=== PATIENT | male | born 1950 | race Caucasian/White ===

== ENCOUNTER 2019-03-28 11:44 | Outpatient (CLI) | payer MEDICARE, OTHER ==
--- NOTE | 2019-03-28 12:36 | RAD ---
EXAM: 3 views of the lumbosacral spine HISTORY: Low back pain for years COMPARISON: None FINDINGS: 3 views of the lumbosacral spine shows normal height of the vertebral bodies without fractu re. There is grade 1-2 anterolisthesis of L5 on S1. Intervertebral discs are narrowed throughout the lumbar spine with moderate osteophyte formation. Alignment is unchanged with flexion and extensio n. The sacroiliac joints are unremarkable. IMPRESSION: Degenerative changes as above with anterolisthesis of L5 on S1.
--- NOTE | 2019-03-28 13:39 | MRI ---
EXAM: MRI lumbar spine without contrast HISTORY: Low back pain for years COMPARISON: None TECHNIQUE: Multiple planar multisequence MR images were obtained of the lumbar spine without contrast . FINDINGS: There is grade 1-2 anterolisthesis of L5 on S1. Endplate degenerative changes are seen throughout the lumbar spine. Generalized disc desiccation is seen. The vertebral bodies demonstrate normal height without fracture. Numerous cysts are seen in both kidneys. The paraspinal soft tissues are unremarkable. The conus medullaris terminates normally at T12/L1. T12/L1: A small disc osteophyte complex is seen. No posterior facet arthrosis. No central canal hilario nosis. No neural foraminal stenosis L1/2: A small disc osteophyte complex is seen. No posterior facet arthrosis. No central canal steno sis. Mild bilateral neural foraminal stenosis L2/3: A moderate disc osteophyte complex is seen. Mild bilateral posterior facet arthrosis. Mild ce ntral canal stenosis. Mild bilateral neural foraminal stenosis L3/4: A large disc osteophyte complex is seen. Mild bilateral posterior facet arthrosis. Moderate c entral canal stenosis. Moderate bilateral neural foraminal stenosis L4/5: A large disc osteophyte complex is seen. Moderate bilateral posterior facet arthrosis. Modera te central canal stenosis. Severe right and moderate left neural foraminal stenosis L5/S1: A small disc osteophyte complex is seen. Moderate bilateral posterior facet arthrosis. No ce ntral canal stenosis. Severe right and moderate left neural foraminal stenosis IMPRESSION: Degenerative changes of the lumbar spine as above.
== END 2019-03-28 11:45 | disposition home or self-care (01) ==
LOC: SCSMRI 11:44
PROVIDERS: ATTEND Neurological Surgery
DX: M48.061 Spinal stenosis, lumbar region without neurogenic claudication (principal); M47.816 Spondylosis without myelopathy or radiculopathy, lumbar region; M47.817 Spondylosis without myelopathy or radiculopathy, lumbosacral region; M43.17 Spondylolisthesis, lumbosacral region
CPT/HCPCS: 72100; 72148

== ENCOUNTER 2019-06-20 09:31 | Inpatient (IN) | payer MEDICARE ==
[2019-06-22 08:00] LABS: Hemoglobin 14.4 g/dL (14.0-18.0); Mean Corpuscular HGB CONC 33.3 g/dL (32.0-36.0); Mean Corpuscular Hemoglobin 31.4 pg (27.0-31.0); Mean Corpuscular Volume 94.6 fL (78.0-98.0); Mean Platelet Volume 6.8 fL (7.4-10.4); Platelet Count 231 thou/uL (130-400); RBC Distribution Width 11.9 % (11.5-14.5); Red Blood Cell (RBC) Count 4.58 mill/uL (4.70-6.10); White Blood Cell (WBC) Count 7.4 thou/uL (4.8-10.8)
[2019-06-22 08:23] LABS: Anion Gap 14 mmol/L (10-20); BUN (Urea Nitrogen) 24 mg/dL (8.4-25.7); Calc. Creatinine Clearance 95 mL/min (70-130); Calcium 9.4 mg/dL (7.8-10.44); Carbon Dioxide 24 mmol/L (23-31); Chloride 103 mmol/L (98-107); Estimated GFR-MDRD 77; Glucose 105 mg/dL (80-115); Potassium 4.1 mmol/L (3.5-5.1); Sodium 137 mmol/L (136-145)
[2019-06-22] MEDS ORDERED: Sodium Chloride 0.9% 10 ML ONE (08:36)
[2019-06-22] MEDS ORDERED: Fentanyl 100 MCG/2 ML VIAL ONE ×3 (09:10→11:47)
--- NOTE | 2019-06-22 11:08 | OP ---
DATE OF PROCEDURE: 06/22/2019 RACK LOADER: Karen Barry PA-C PROCEDURES PERFORMED: L4 through S1 decompressive laminectomy, posterolateral arthrodesis, pedicle screw instrumentation L4-S1, demineralized bone matrix, and local morselized autograft. DESCRIPTION OF PROCEDURE: The patient was brought to the operating room and intubated. He was rolled in a prone position on gel-filled chest rolls. An incision was made exposing L4 through S1, and the level was confirmed by x-ray. We performed complete L5, inferior L4 and superior S1 laminectomies completely decompressing the neural elements. We next placed pedicle screws at right L4, right L5 and right S1 using lateral fluoroscopic guidance. The papa was secured between the screws, connected by nuts, which were final tightened. The wound was extensively irrigated. MAC hemostasis was secured. A combination of demineralized bone matrix and local morselized autograft was laid over the lateral and posterolateral surfaces for the purpose of arthrodesis. Vancomycin powder was applied, and the wound was closed in anatomic layers over drain. Job ID: [id number]
[2019-06-22] MEDS ORDERED: Promethazine HCl 25 MG/ML VIAL SLOW IVP PRN (11:12)
[2019-06-22] MEDS ORDERED: Promethazine HCl 25 MG/ML VIAL IM PRN ×2 (11:12→11:31)
[2019-06-22] MEDS ORDERED: Ondansetron HCl/PF 4 MG/2 ML Vial IVP PRN (11:12)
[2019-06-22] MEDS ORDERED: Morphine 4 MG/ML VIAL SLOW IVP PRN (11:31)
[2019-06-22] MEDS ORDERED: diphenhydrAMINE 25 MG CAP PO PRN (11:31)
[2019-06-22] MEDS ORDERED: Milk Of Magnesia 30 ML UDCUP PO PRN (11:31)
[2019-06-22] MEDS ORDERED: diphenhydrAMINE 50 MG/ML VIAL IVP PRN (11:31)
[2019-06-22] MEDS ORDERED: Bisacodyl 10 MG SUPP PR PRN (11:31)
[2019-06-22] MEDS ORDERED: traMADol HCl 50 MG TAB PO PRN ×2 (11:31)
[2019-06-22] MEDS ORDERED: Promethazine 25 MG TAB PO PRN (11:31)
[2019-06-22] MEDS ORDERED: Promethazine HCl 12.5 MG SUPP PR PRN (11:31)
[2019-06-22] MEDS ORDERED: tiZANidine HCl 4 MG TAB PO PRN (11:31)
[2019-06-22] MEDS ORDERED: Mag-Al 1200 mg/1200 mg/30 ML UDCUP PO PRN (11:31)
[2019-06-22] MEDS ORDERED: Ondansetron PF 4 MG/2 ML Vial SLOW IVP PRN (11:33)
[2019-06-22] MEDS ORDERED: Nitroglycerin 0.4 MG TAB (25 Tab Bottle) SL PRN (13:49)
[2019-06-22] MEDS: HYDROcodone/Acetaminophen 10/325 mg Tablet PO PRN (13:53)
--- NOTE | 2019-06-22 13:54 | PDOC.HOSPP ---
- Subjective Encounter Date: 06/22/19 Encounter Time: 13:40 Subjective: Consult for gen med mgmt s/p L-spine laminectomy/arthrodesis and instrumentation. Hx of CAD, HTN, Hypothyroidism, Depression. c/o some RLE and back pain post op but managed with po Diana. No bowel or bladder incontinence. No SOB, CP. Reviewed all hx, labs, x-rays and EKG's. - Objective Vital Signs & Weight: Vital Signs (12 hours) Temp Pulse Resp BP Pulse Ox 06/22/19 12:45 97.8 F 63 18 114/68 96 Weight Weight 220 lb I&O: 06/21/19 06/22/19 06/23/19 06:59 06:59 06:59 Intake Total 100 Balance 100 Result Diagrams: 06/22/19 07:54 06/22/19 07:54 EKG Reviewed by me: Yes (NSR, nl axis, no acute changes) - Exam General Appearance: NAD, awake alert Eye: PERRL, anicteric sclera ENT: normocephalic atraumatic, no oropharyngeal lesions Neck: supple, symmetric, no JVD, no thyromegaly, no lymphadenopathy Heart: RRR, no murmur, no gallops, no rubs, normal peripheral pulses Respiratory: CTAB, no wheezes, no rales, no ronchi, normal chest expansion Gastrointestinal: soft, non-tender, non-distended, normal bowel sounds, no palpable masses Extremities: no cyanosis, no clubbing, no edema Skin: normal turgor, no lesions Neurological: cranial nerve grossly intact, no new deficit Musculoskeletal: normal tone Psychiatric: normal affect, A&O x 3 Hosp A/P (1) HTN (hypertension) Code(s): I10 - ESSENTIAL (PRIMARY) HYPERTENSION Status: Chronic Qualifiers: Hypertension type: essential hypertension Qualified Code(s): I10 - Essential (primary) hypertension Plan: Resume home BP regimen, serial monitoring (2) CAD (coronary artery disease) Code(s): I25.10 - ATHSCL HEART DISEASE OF [place] CORONARY ARTERY W/O ANG PCTRS Status: Chronic Plan: Resume home ASA in 24h, continue Lipitor (3) Hypothyroid Code(s): E03.9 - HYPOTHYROIDISM, UNSPECIFIED Status: Chronic Plan: Resume Levothyroxine 50mcg daily (4) Depression Code(s): F32.9 - MAJOR DEPRESSIVE DISORDER, SINGLE EPISODE, UNSPECIFIED Status : Chronic Plan: Resume Sertraline (5) Status post lumbar laminectomy Code(s): Z98.890 - OTHER SPECIFIED POSTPROCEDURAL STATES Status: Acute Plan: Pain control, DVT ppx, OOB with PT/OT, likely outpt rehab - Plan continue antibiotics, PT/OT, criminal justice social worker, incentive spirometry, out of bed/ ambulate, DVT proph w/SCDs Stable currently Resume home BP regimen Restart ASA in 24h OOB with PT/OT DVT ppx Thanks you for the consult. Will continue to follow with primary service.
[2019-06-22] MEDS ORDERED: CEFAZOLIN 2 GM in Premix Bag 1 BAG IVPB SCH (16:00)
[2019-06-22] MEDS: CEFAZOLIN 2 GM in Premix Bag 1 BAG IVPB SCH (16:04)
[2019-06-22] MEDS: Sodium Chloride 0.9% 1,000 ML IV SCH (16:04)
[2019-06-22] MEDS ORDERED: Glycopyrrolate 0.2 MG/ML 5 ML SYRINGE ONE (16:09)
[2019-06-22] MEDS ORDERED: ePHEDrine 50 MG/ML VIAL ONE (16:09)
[2019-06-22] MEDS ORDERED: Dexamethasone 20 MG/5 ML VIAL ONE (16:09)
[2019-06-22] MEDS ORDERED: PROPOFOL 200 MG/20 ML VIAL ONE (16:09)
[2019-06-22] MEDS ORDERED: Ondansetron PF 4 MG/2 ML Vial ONE (16:09)
[2019-06-22] MEDS ORDERED: Rocuronium Bromide 10 MG/ML (10ML VIAL) ONE (16:09)
[2019-06-22] MEDS ORDERED: Lidocaine 1% PF 5 ML VIAL ONE (16:09)
[2019-06-22] MEDS ORDERED: Tamsulosin HCl 0.4 MG CAP PO SCH (18:00)
[2019-06-22] MEDS: Atorvastatin Calcium 40 MG TAB PO SCH (21:07)
[2019-06-22] MEDS: Ezetimibe 10 MG TAB PO SCH (21:07)
[2019-06-22] MEDS: Lisinopril 20 MG TAB PO SCH (21:08)
[2019-06-23] MEDS: CEFAZOLIN 2 GM in Premix Bag 1 BAG IVPB SCH ×4 (00:45→23:37)
[2019-06-23] MEDS: Sodium Chloride 0.9% 1,000 ML IV SCH ×2 (00:46→15:43)
[2019-06-23] MEDS: Levothyroxine Sodium 50 MCG TAB PO SCH (05:29)
--- NOTE | 2019-06-23 06:46 | PRG ---
DATE OF SERVICE: SUBJECTIVE: The patient is postoperative day #1, status post L4 to S1 decompression and fusion. Following the surgery, he was transitioned to the Med/Surg floor, his pain has been well controlled with p.o. medications, he is tolerating a regular diet. BETY drain was placed intraoperatively and had approximately 90 mL of output overnight. He is complaining of some difficulty urinating and required I and O cath x1 last night. He was also treated with Flomax 0.4 mg yesterday and will get an additional dose this morning. His urination has improved and he was able to pee approximately 1000 mL overnight, but his most recent bladder scan was still elevated. He feels that if he is able to get up and walk a bit, he may be able to empty his bladder further. Additionally, he is complaining of some dysesthesias down the right leg, denies any weakness. OBJECTIVE: GENERAL: On exam, the patient is awake, alert, in no acute distress. NEUROLOGIC: He has free active range of motion of all extremities. No focal motor weakness is appreciated on my exam. Sensation is intact to light touch. No incisional issues. PLAN: We will plan to get the patient up and ambulate him short distance and give him another attempt to urinate. If he continues to bladder scan greater than 350, he will require an additional I and O cath. If this persists, he may require indwelling Schrader catheter placement. We will also have him work with Physical Therapy today and continue mobilizing him appropriately. We will leave his BETY drain for an additional night and likely remove in the morning. Job ID: [id number] MTDD
[2019-06-23] MEDS: Tamsulosin HCl 0.4 MG CAP PO SCH (09:36)
[2019-06-23] MEDS ORDERED: Morphine 2 MG/ML SYRINGE SLOW IVP PRN (09:48)
[2019-06-23] MEDS: HYDROcodone/Acetaminophen 10/325 mg Tablet PO PRN (15:54)
--- NOTE | 2019-06-23 17:40 | PDOC.HOSPP ---
- Subjective Encounter Date: 06/23/19 Encounter Time: 08:20 Subjective: Pt seen for followup re: hypertension. Feels well at rest, has back pain when sitting up. No other complaints. - Objective Vital Signs & Weight: Vital Signs (12 hours) Temp Pulse Resp BP BP Pulse Ox 06/23/19 16:03 98.0 F 81 18 133/61 93 L 06/23/19 11:35 98.2 F 87 16 129/70 96 06/23/19 08:05 98.4 F 80 18 119/53 L 96 Weight Weight 220 lb I&O: 06/22/19 06/23/19 06/24/19 06:59 06:59 06:59 Intake Total 1550 1425 Output Total 1190 1000 Balance 360 425 Result Diagrams: 06/22/19 07:54 06/22/19 07:54 Additional Labs: Labs and MARs reviewed by or Hospitalist ROS - Review of Systems Cardiovascular: denies: chest pain, palpitations, orthopnea, paroxysmal noc. dyspnea, edema, light headedness Musculoskeletal: reports: back pain - Medication Medications: Active Medications Generic Name Dose Route Start Last Admin Trade Name Freq PRN Reason Stop Dose Admin Hydrocodone Bitart/Acetaminophen 1 tab 06/22/19 11:31 06/22/19 13:53 [place] 10/325 PO 1 tab Q4H PRN Administration PAIN (1-3) Hydrocodone Bitart/Acetaminophen 2 tab 06/22/19 11:31 06/23/19 15:54 [place] 10/325 PO 2 tab Q4H PRN Administration PAIN (4-6) Atorvastatin Calcium 80 mg 06/22/19 21:00 06/22/19 21:07 Lipitor PO 80 mg HS PRISCA Administration Ezetimibe 10 mg 06/22/19 21:00 06/22/19 21:07 Zetia PO 10 mg HS PRISCA Administration Sodium Chloride 1,000 mls @ 75 mls/hr 06/22/19 11:31 06/23/19 15:43 Normal Saline 0.9% IV 1,000 mls .[id number] PRISCA Administration Cefazolin Sodium/Dextrose 2 gm 50 mls @ 100 mls/hr 06/22/19 16:00 06/23/19 15 :43 / Device IVPB 50 mls [id number] PRISCA Administration Isosorbide Mononitrate 60 mg 06/22/19 21:00 06/22/19 21:08 Imdur PO 60 mg HS PRISCA Administration Levothyroxine Sodium 50 mcg 06/23/19 06:00 06/23/19 05:29 Synthroid PO 50 mcg 0600 PRISCA Administration Lisinopril 20 mg 06/22/19 21:00 06/22/19 21:08 Zestril PO 20 mg HS PRISCA Administration Morphine Sulfate 2 mg 06/23/19 09:48 06/23/19 09:52 Morphine SLOW IVP 2 mg Q1H PRN Administration MODERATE BREAKTHROUGH PAIN Sertraline HCl 100 mg 06/22/19 21:00 06/22/19 21:08 Zoloft PO 100 mg HS PRISCA Administration Sodium Chloride 10 ml 06/22/19 21:00 06/23/19 09:38 Flush - Normal Saline IVF Not Given Q12HR PRISCA Tamsulosin HCl 0.4 mg 06/23/19 09:00 06/23/19 09:36 Flomax PO 0.4 mg DAILY PRISCA Administration Tizanidine HCl 4 mg 06/22/19 11:31 06/22/19 13:54 Zanaflex PO 4 mg Q6H PRN Administration MUSCLE SPASM - Exam General - other findings: Obese ENT: moist mucosa Neck: supple Heart: RRR, no rubs Respiratory: CTAB, no rales Gastrointestinal: soft, non-tender Extremities: no clubbing Musculoskeletal: no muscle wasting Psychiatric: normal affect, normal behavior Hosp A/P (1) HTN (hypertension) Code(s): I10 - ESSENTIAL (PRIMARY) HYPERTENSION Status: Chronic Qualifiers: Hypertension type: essential hypertension Qualified Code(s): I10 - Essential (primary) hypertension (2) CAD (coronary artery disease) Code(s): I25.10 - ATHSCL HEART DISEASE OF [place] CORONARY ARTERY W/O ANG PCTRS Status: Chronic (3) Depression Code(s): F32.9 - MAJOR DEPRESSIVE DISORDER, SINGLE EPISODE, UNSPECIFIED Status : Chronic (4) Hypothyroid Code(s): E03.9 - HYPOTHYROIDISM, UNSPECIFIED Status: Chronic - Plan plan discussed w/ family, PT/OT, out of bed/ambulate HTN controlled. CAD stable. Depression mild, stable.
[2019-06-23 19:35] VITALS: BMI 33.4
[2019-06-23] MEDS: Ezetimibe 10 MG TAB PO SCH (20:04)
[2019-06-23] MEDS: Atorvastatin Calcium 40 MG TAB PO SCH (20:04)
[2019-06-23] MEDS: Lisinopril 20 MG TAB PO SCH (20:04)
[2019-06-24] MEDS: Sodium Chloride 0.9% 1,000 ML IV SCH (04:58)
[2019-06-24] MEDS: Levothyroxine Sodium 50 MCG TAB PO SCH (05:25)
[2019-06-24] MEDS: HYDROcodone/Acetaminophen 10/325 mg Tablet PO PRN ×2 (05:29→14:11)
[2019-06-24] MEDS: CEFAZOLIN 2 GM in Premix Bag 1 BAG IVPB SCH (10:05)
[2019-06-24] MEDS: Tamsulosin HCl 0.4 MG CAP PO SCH (10:06)
--- NOTE | 2019-06-24 11:26 | PDOC.HOSPP ---
- Subjective Encounter Date: 06/24/19 Encounter Time: 08:30 Subjective: Patient seen and examined. No new complaints. No overnight events - Objective Vital Signs & Weight: Vital Signs (12 hours) Temp Pulse Resp BP Pulse Ox 06/24/19 07:50 98.7 F 89 16 107/64 97 06/24/19 06:56 97 06/24/19 03:07 98.3 F 69 16 104/62 90 L 06/23/19 23:34 98.4 F 75 16 114/75 93 L Weight Weight 220 lb I&O: 06/23/19 06/24/19 06/25/19 06:59 06:59 06:59 Intake Total 1550 4675 Output Total 1190 3460 Balance 360 1215 Result Diagrams: 06/22/19 07:54 06/22/19 07:54 Hospitalist ROS - Review of Systems Eyes: denies: pain, vision change, conjunctivae inflammation, eyelid inflammation, redness, other ENT: denies: ear pain, ear discharge, nose pain, nose discharge, nose congestion , mouth pain, mouth swelling, throat pain, throat swelling, other Respiratory: denies: cough, dry, shortness of breath, hemoptysis, SOB with excertion, pleuritic pain, sputum, wheezing, other Cardiovascular: denies: chest pain, palpitations, orthopnea, paroxysmal noc. dyspnea, edema, light headedness, other Gastrointestinal: denies: nausea, vomiting, abdominal pain, diarrhea, constipation, melena, hematochezia, other Genitourinary: denies: dysuria, frequency, incontinence, hematuria, retention, other Musculoskeletal: denies: neck pain, shoulder pain, arm pain, back pain, hand pain, leg pain, foot pain, other Skin: denies: rash, lesions, nabila, bruising, other - Medication Medications: Active Medications Generic Name Dose Route Start Last Admin Trade Name Freq PRN Reason Stop Dose Admin Hydrocodone Bitart/Acetaminophen 1 tab 06/22/19 11:31 06/24/19 05:29 [place] 10/325 PO 1 tab Q4H PRN Administration PAIN (1-3) Hydrocodone Bitart/Acetaminophen 2 tab 06/22/19 11:31 06/23/19 15:54 [place] 10/325 PO 2 tab Q4H PRN Administration PAIN (4-6) Atorvastatin Calcium 80 mg 06/22/19 21:00 06/23/19 20:04 Lipitor PO 80 mg HS PRISCA Administration Ezetimibe 10 mg 06/22/19 21:00 06/23/19 20:04 Zetia PO 10 mg HS PRISCA Administration Sodium Chloride 1,000 mls @ 75 mls/hr 06/22/19 11:31 06/24/19 04:58 Normal Saline 0.9% IV 1,000 mls .[id number] PRISCA Administration Isosorbide Mononitrate 60 mg 06/22/19 21:00 06/23/19 20:04 Imdur PO 60 mg HS PRISCA Administration Levothyroxine Sodium 50 mcg 06/23/19 06:00 06/24/19 05:25 Synthroid PO 50 mcg 0600 PRISCA Administration Lisinopril 20 mg 06/22/19 21:00 06/23/19 20:04 Zestril PO 20 mg HS PRISCA Administration Morphine Sulfate 2 mg 06/23/19 09:48 06/23/19 09:52 Morphine SLOW IVP 2 mg Q1H PRN Administration MODERATE BREAKTHROUGH PAIN Sertraline HCl 100 mg 06/22/19 21:00 06/23/19 20:07 Zoloft PO 100 mg HS PRISCA Administration Sodium Chloride 10 ml 06/22/19 21:00 06/24/19 10:07 Flush - Normal Saline IVF Not Given Q12HR PRISCA Tamsulosin HCl 0.4 mg 06/23/19 09:00 06/24/19 10:06 Flomax PO 0.4 mg DAILY PRISCA Administration Tizanidine HCl 4 mg 06/22/19 11:31 06/22/19 13:54 Zanaflex PO 4 mg Q6H PRN Administration MUSCLE SPASM - Exam General Appearance: NAD, awake alert Eye: PERRL, anicteric sclera ENT: normocephalic atraumatic, no oropharyngeal lesions Neck: supple, symmetric, no JVD, no thyromegaly Heart: RRR, no murmur, no gallops, no rubs, normal peripheral pulses Respiratory: CTAB, no wheezes, no rales, no ronchi Gastrointestinal: soft, non-tender, non-distended, normal bowel sounds Extremities: no cyanosis, no clubbing, no edema Skin: normal turgor, no lesions Neurological: cranial nerve grossly intact, no focal deficits Musculoskeletal: normal tone, normal strength Psychiatric: normal affect, normal behavior Hosp A/P (1) Status post lumbar laminectomy Code(s): Z98.890 - OTHER SPECIFIED POSTPROCEDURAL STATES Status: Acute (2) CAD (coronary artery disease) Code(s): I25.10 - ATHSCL HEART DISEASE OF [place] CORONARY ARTERY W/O ANG PCTRS Status: Chronic (3) Depression Code(s): F32.9 - MAJOR DEPRESSIVE DISORDER, SINGLE EPISODE, UNSPECIFIED Status : Chronic (4) HTN (hypertension) Code(s): I10 - ESSENTIAL (PRIMARY) HYPERTENSION Status: Chronic Qualifiers: Hypertension type: essential hypertension Qualified Code(s): I10 - Essential (primary) hypertension (5) Hypothyroid Code(s): E03.9 - HYPOTHYROIDISM, UNSPECIFIED Status: Chronic - Plan old records reviewed/req stable for discharge medication reviewed as above symptomatic treatment continue home meds
[2019-06-24 12:26] VITALS: BP 130/76; TEMP 98.6
--- NOTE | 2019-06-24 13:18 | DIS ---
DATE OF ADMISSION: 06/22/2019 DATE OF DISCHARGE: 06/24/2019 PRIMARY CARE PHYSICIAN: Dr. Eliane Kwan. DISCHARGE DISPOSITION: Home. PRIMARY DISCHARGE DIAGNOSES: L4-S1 decompressive laminectomy. SECONDARY DISCHARGE DIAGNOSES: Coronary artery disease, depression, hypertension, and hypothyroidism. PRIMARY PROCEDURE/OPERATION: Decompressive laminectomy. RADIOLOGICAL INVESTIGATION: None. SIGNIFICANT LABORATORY DATA: WBC 7.4, hemoglobin 14.4, and platelets are 231. Sodium 137, potassium 4.1, BUN 24, creatinine 0.97, and calcium 9.4. DISCHARGE MEDICATION: 1. [place] 10 one tablet q.6 hourly p.r.n. 2. Zanaflex 4 mg q.6 hourly p.r.n. 3. Amlodipine 10 mg at bedtime. 4. Lipitor 80 mg p.o. nightly. 5. Keflex 500 mg q.i.d. as directed. 6. Zetia 10 mg at bedtime. 7. Imdur 60 mg daily. 8. Synthroid 50 mcg daily. 9. Lisinopril 20 mg p.o. at bedtime. 10. Macrobid 100 mg p.o. b.i.d. 11. Nitroglycerin 0.4 mg sublingual p.r.n. 12. Zoloft 100 mg p.o. at bedtime. 13. Flomax 0.4 mg daily. 14. Restart aspirin when neurosurgeon okayed. CONTRAINDICATION: None. CODE STATUS: Full code. INPATIENT ENAMEL MACHINE OPERATOR: Dr. Ngo was primary while in hospital. Sound Team was consulted for medical comanagement. TEST RESULTS PENDING ON DISCHARGE: None. ALLERGIES: NO KNOWN DRUG ALLERGIES. DISCHARGE PLAN: Posthospital, the patient will follow up with primary care physician and Dr. Ngo as instructed. The patient has appointment with Dr. Nj Loya on June 28, 2019. HOSPITAL COURSE: A 68-year-old male with above-mentioned medical problem, who was admitted by neurosurgeon for decompressive laminectomy, which was done on June 22, 2019 without any complication. Postoperatively, sound Team was consulted for medical comanagement. We resumed the patient's home medication while in hospital. The patient was making progress. He had his drain in place at surgical site, which was removed by the time of discharge, the patient's pain was well controlled. Neurosurgeons are okay to discharge him today. The patient's medical problems are stable and the patient is medically okay for discharge and he will follow up with unix consultant as directed. The patient is seen and examined at bedside today. Please see my progress note from today for further detail. Job ID: [id number]
--- NOTE | 2019-06-28 10:10 | EKG ---
Test Reason : PREOP Blood Pressure : / mmHG Vent. Rate : 067 BPM Atrial Rate : 067 BPM P-R Int : 172 ms QRS Dur : 082 ms QT Int : 384 ms P-R-T Axes : 032 030 038 degrees QTc Int : 405 ms Normal sinus rhythm Normal ECG When compared with ECG of 25-NOV-2016 10:12, No significant change was found Confirmed by DEREK NELSON MD ([id number]) on 06/28/2019 10:10:07 AM Referred By: [facility] Confirmed By:DEREK NELSON MD
== END 2019-06-24 14:16 | disposition home or self-care (01) | DRG 460 ==
LOC: EDSTATUS 10:29 → SURG A 06-22 06:56 → SURG B 06-22 11:48
PROVIDERS: ADMIT Neurological Surgery; ATTEND Neurological Surgery
PROC: 0SG0071 Fusion of Lumbar Vertebral Joint with Autologous Tissue Substitute, Posterior Approach, Posterior Column, Open Approach (ICD-10-PCS; principal; 2019-06-22)
PROC: 0SG3071 Fusion of Lumbosacral Joint with Autologous Tissue Substitute, Posterior Approach, Posterior Column, Open Approach (ICD-10-PCS; 2019-06-22)
DX: M47.896 Other spondylosis, lumbar region (principal); M43.17 Spondylolisthesis, lumbosacral region; I10 Essential (primary) hypertension; I25.10 Atherosclerotic heart disease of native coronary artery without angina pectoris; F32.9 Major depressive disorder, single episode, unspecified; E03.9 Hypothyroidism, unspecified; Z79.82 Long term (current) use of aspirin; Z79.899 Other long term (current) drug therapy
CPT/HCPCS: 36415; 76000; 80048; 85027; 93005; 93010; C1713; C1768; J0690; J2270; J3010; J3370; J3490

== ENCOUNTER 2019-07-06 12:29 | Outpatient (CLI) | payer MEDICARE ==
--- NOTE | 2019-07-06 12:58 | RAD ---
XR Lumbar Spine 2 Or 3 View: 07/06/2019 12:00 AM CLINICAL INDICATION: Lumbar radiculopathy COMPARISON: 03/28/2019 FINDINGS: No fracture. Moderate multilevel degenerative change of the lumbar spine is present. Interval performance of right -sided posterior fusion spanning L4-S1. Grade 1 spondylolisthesis, L5-S1 is similar in appearance. Incidental findings:Atherosclerosis IMPRESSION: 1. No acute osseous abnormality. 2. Interval fusion of L4-S1.
== END 2019-07-06 12:30 | disposition home or self-care (01) ==
LOC: SCSRAD 12:29
PROVIDERS: ATTEND Psychiatry & Neurology Clinical Neurophysiology
DX: M54.16 Radiculopathy, lumbar region (principal); Z98.1 Arthrodesis status
CPT/HCPCS: 72100

== ENCOUNTER 2019-08-05 09:23 | Outpatient (CLI) | payer MEDICARE ==
--- NOTE | 2019-08-05 12:47 | CT ---
CT LUMBAR SPINE WITHOUT CONTRAST: INDICATIONS: Low back pain. Radicular pain. Prior lumbar surgery on 06/18/2019. COMPARISON: MRI lumbar spine from 03/28/2019. FINDINGS: There are prominent degenerative disk changes at all levels of the lumbar spine with loss of disk spa ce and vacuum phenomena. Slight posterolisthesis at L4-L5 appears stable from the prior MRI. Grade 1 anterolisthesis at L5-S1 is stable from the prior MRI. Postoperative changes are now noted. Pedicle s crews on the right are seen at the L4, L5 and S1 levels. The L4 and L5 pedicle screws appears adequat jae positioned. At S1 the pedicle screw extends through the foramina and appears to contact the exiting right S1 nerv e within the foramina. There are posterior laminectomy changes at L4-L5 and L5-S1. At L1-L2, mild disk bulge. Disk osteophyte complex projects laterally to the left. Facet hypertrophy. Mild central canal stenosis. The osteophyte laterally may contact the lateral left L1 nerve root. At L2-L3, loss of disk space. Disk bulge. Disk osteophyte complex projects laterally on both sides, m ore prominent on the left. Facet hypertrophy. Mild central canal stenosis. At L3-L4, degenerative disk changes. Broad-based disk bulge. Disk osteophyte complex projects lateral ly to both sides, more pronounced to the left. There is facet hypertrophy. Moderate to severe central canal stenosis. Left foraminal stenosis. At L4-L5, slight posterolisthesis. Disk bulge. Disk osteophyte complex projects laterally to both lyn es. Facet hypertrophy. Posterior laminectomy change. Mild central canal stenosis. Mild foraminal encr oachment due to facet hypertrophy. At L5-S1, broad-based disk bulge. Facet hypertrophy without significant central canal stenosis. Conge nitally smaller thecal sac. The right pedicle screw encroaches into the superior aspect of the right foramina without definite nerve root impingement. There is foraminal narrowing due to disk bulge and facet hypertrophy. IMPRESSION: 1. Moderately severe degenerative disk changes at all levels, as described above. 2. Postoperative changes now noted with pedicle screws on the right at L4, L5 and S1. The S1 screw ex tends through the right sacral foramina and appears to impinge on the exiting right S1 nerve root, wi thin the foramina. The L5 pedicle screw extends along the superior aspect of the L5 foramina on the r ight without definite nerve root impingement. POS: [facility]
== END 2019-08-05 09:24 | disposition home or self-care (01) ==
LOC: SCSCT 09:23
PROVIDERS: ATTEND Neurological Surgery
DX: M51.16 Intervertebral disc disorders with radiculopathy, lumbar region (principal); M54.5 Low back pain; M79.606 Pain in leg, unspecified; Z98.890 Other specified postprocedural states
CPT/HCPCS: 72131

== ENCOUNTER 2019-08-15 09:50 | Day surgery (SDC) | payer MEDICARE ==
[2019-08-12 12:50] VITALS: BMI 31.9
[~2019-08-15 09:50] MED LIST: Dexamethasone 20 MG/5 ML VIAL ONE; Glycopyrrolate 0.2 MG/ML 5 ML SYRINGE ONE; Ketorolac Tromethamine 30 MG/ML VIAL ONE; Lidocaine 1% PF 5 ML VIAL ONE; Metoclopramide HCl 10 MG/2 ML VIAL ONE; Ondansetron PF 4 MG/2 ML Vial ONE; PHENYLEPHRINE-NS 100 MCG/ML 10 ML SYRINGE ONE; PROPOFOL 200 MG/20 ML VIAL ONE; Rocuronium Bromide 10 MG/ML (10ML VIAL) ONE
[2019-08-15] MEDS ORDERED: Sodium Chloride 0.9% 10 ML ONE (10:26)
[2019-08-15 10:36] LABS: #Basophils 0.1 thou/uL (0.0-0.2); #Eosinphils 0.2 thou/uL (0.0-0.7); #Lymphocytes 3.1 thou/uL (1.20-3.40); #Monocytes 0.8 thou/uL (0.11-0.59); #Neutrophils 3.9 thou/uL (1.40-6.50); %Basophils 1.2 % (0.0-1.0); %Eosinophils 1.9 % (0.0-10.0); %Lymphocytes 38.2 % (21.0-51.0); %Monocytes 10.2 % (0.0-10.0); %Neutrophils 48.6 % (42.0-75.0); Hemoglobin 13.7 g/dL (14.0-18.0); Mean Corpuscular HGB CONC 33.1 g/dL (32.0-36.0); Mean Corpuscular Hemoglobin 31.5 pg (27.0-31.0); Mean Corpuscular Volume 95.1 fL (78.0-98.0); Mean Platelet Volume 6.6 fL (7.4-10.4); Platelet Count 248 thou/uL (130-400); RBC Distribution Width 11.8 % (11.5-14.5); Red Blood Cell (RBC) Count 4.34 mill/uL (4.70-6.10); White Blood Cell (WBC) Count 8.1 thou/uL (4.8-10.8)
[2019-08-15] MEDS ORDERED: Fentanyl 100 MCG/2 ML VIAL ONE ×3 (10:41→12:30)
[2019-08-15 10:56] LABS: Anion Gap 13 mmol/L (10-20); BUN (Urea Nitrogen) 22 mg/dL (8.4-25.7); Calc. Creatinine Clearance 116 mL/min (70-130); Calcium 9.6 mg/dL (7.8-10.44); Carbon Dioxide 25 mmol/L (23-31); Chloride 103 mmol/L (98-107); Estimated GFR-MDRD Greater than 90; Glucose 94 mg/dL (83-110); Potassium 4.4 mmol/L (3.5-5.1); Sodium 137 mmol/L (136-145)
--- NOTE | 2019-08-15 12:07 | OP ---
DATE OF PROCEDURE: 08/15/2019 BAND STRAIGHTENER: Karen Barry PA-C PROCEDURES PERFORMED: Exploration of spinal fusion L4 through S1, removal of hardware L4 through S1, posterolateral arthrodesis, BMP and cancellous bone chips, L4 through S1. DESCRIPTION OF PROCEDURE: The patient was brought to the operating room and intubated. He was rolled in a prone position on gel-filled chest rolls. The previous incision was reopened and the prior hardware was identified. We found both S1 and L5 to be somewhat loose and after attempts felt that there was no adequate replacement site with hope of better positioning. We therefore removed all 3 screws and replaced no instrumentation. The right posterolateral surfaces were prepared with first arthrodesis and a combination of BMP and cancellous bone chips was laid over the right lamina on the posterolateral surfaces for the purpose of arthrodesis. Vancomycin powder was applied and the wound was closed in anatomic layers. Job ID: [id number]
[2019-08-15] MEDS ORDERED: Tamsulosin HCl 0.4 MG CAP ONE (12:30)
== END 2019-08-15 16:20 | disposition home or self-care (01) ==
LOC: SDC 09:50
PROVIDERS: ATTEND Neurological Surgery
PROC: 0SG3071 Fusion of Lumbosacral Joint with Autologous Tissue Substitute, Posterior Approach, Posterior Column, Open Approach (ICD-10-PCS; principal; 2019-08-15)
PROC: 0ST40ZZ Resection of Lumbosacral Disc, Open Approach (ICD-10-PCS; 2019-08-15)
DX: M54.16 Radiculopathy, lumbar region (principal); M43.16 Spondylolisthesis, lumbar region; I10 Essential (primary) hypertension; E78.5 Hyperlipidemia, unspecified; Z79.899 Other long term (current) drug therapy
CPT/HCPCS: 20930; 20936; 22612; 22850; 76000; 80048; 85025; 93005; C1713; 36415; 93010; J0131; J0690; J1100; J1885; J2001; J2405; J2704; J2765; J3010; J3370; J3490

== ENCOUNTER 2019-09-06 12:39 | Outpatient (CLI) | payer MEDICARE ==
--- NOTE | 2019-09-06 13:42 | RAD ---
2 VIEWS LUMBAR SPINE: Date: 09/06/2019 COMPARISON: None. HISTORY: Low back pain and prior lumbar spine surgeries. FINDINGS: Cutaneous chay are noted in a posterior midline location. There is prominent multilevel bilateral facet hypertrophy throughout the lower lumbar spine. There is prominent lateral osteophyte formation throughout the lumbar spine, most significant on the left at L1-2, L2-3, and L3-4, and on the right a t L2-3. The lateral examination demonstrates prominent multilevel lumbar spine disc space narrowing w ith degenerative end plate change and anterior osteophyte formation. Anterolisthesis is suspected at L5-S1 measuring approximately 6.0 mm. At L2-3, there is retrolisthesis measuring approximately 5.0 mm. No acute fracture. IMPRESSION: Postoperative and degenerative change within the lumbar spine as above. POS: [facility]
== END 2019-09-06 12:40 | disposition home or self-care (01) ==
LOC: TBSIIMAG 12:39
PROVIDERS: ATTEND Neurological Surgery
DX: M43.16 Spondylolisthesis, lumbar region (principal); M47.816 Spondylosis without myelopathy or radiculopathy, lumbar region; Z98.890 Other specified postprocedural states
CPT/HCPCS: 72100

== ENCOUNTER 2019-10-21 09:42 | Outpatient (CLI) | payer MEDICARE ==
--- NOTE | 2019-10-21 10:11 | RAD ---
3 views of the lumbar spine: 10/21/2019 COMPARISON: 09/06/2019 HISTORY: Low back pain radiating down the right leg FINDINGS: Prominent lateral osteophyte formation is noted, most prominent on the left at L1-2 and L2- 3 and on the right at L2-3. There is anterolisthesis of L5 on S1 measuring 1.3 cm. Mild retrolisthesis noted at L2-3 measuring 6 mm and L3-4 measuring 6 mm. Disc space narrowing with degenerative endplate change and anterior osteophyte formation noted at all levels within the lumbar spine. No acute fracture or dislocation. IMPRESSION: Severe multilevel degenerative change within the lumbar spine as detailed above.
== END 2019-10-21 09:43 | disposition home or self-care (01) ==
LOC: TBSI PT 09:42
PROVIDERS: ATTEND Neurological Surgery
DX: M47.26 Other spondylosis with radiculopathy, lumbar region (principal)
CPT/HCPCS: 72100

== ENCOUNTER 2020-01-31 12:42 | Outpatient (CLI) | payer MEDICARE ==
--- NOTE | 2020-01-31 15:06 | RAD ---
LUMBAR SPINE 2 VIEWS: Date: 01/31/2020 INDICATION: Lumbar stenosis with claudication. Low back pain. COMPARISON: 10/21/2019. FINDINGS: Moderately severe hypertrophic degenerative changes are noted with large anterior and lateral bridgin g osteophytes. Disc narrowing at all levels. The anterior spondylolisthesis at L5-S1 is Grade I and is stable from prior exam. The slight posterol isthesis at L3-4 is stable and the slight posterolisthesis at L2-3 is stable. Prominent facet hypertr ophy. No interval change. IMPRESSION: Degenerative changes of the lumbar spine again noted, stable from recent exam. POS: AH
== END 2020-01-31 12:43 | disposition home or self-care (01) ==
LOC: TBSIIMAG 12:42
PROVIDERS: ATTEND Neurological Surgery
DX: M48.062 Spinal stenosis, lumbar region with neurogenic claudication (principal); M47.816 Spondylosis without myelopathy or radiculopathy, lumbar region
CPT/HCPCS: 72100

== ENCOUNTER 2020-02-08 13:28 | Outpatient (CLI) | payer MEDICARE ==
--- NOTE | 2020-02-08 15:17 | RAD ---
LUMBAR SPINE: 02/10/20 Total of four views. HISTORY: Back pain. FINDINGS: Large bridging anterior and lateral osteophytes are seen throughout the lumbar spine and lower thorac ic spine. Findings suggest DISH. Loss of disc spaces at all levels of the lumbar spine. There is a grade I anterolisthesis at L5-S1. There is posterolisthesis at L2-3 and L3-4. These do not appear to significantly change with flexion or extension. Prominent facet hypertrophy. IMPRESSION: 1. Prominent hypertrophic degenerative changes suggesting DISH. 2. Grade I spondylolisthesis at L5-S1. Mild posterolisthesis at L2-3 and L3-4. POS: AH
--- NOTE | 2020-02-10 12:21 | CT ---
Exam: Lumbar spine CT without contrast Comparison 08/05/2019 HISTORY: Low back pain, radiating down the right leg. FINDINGS: Appropriate attenuation of the visualized paraspinal muscles. Atherosclerosis of a nonaneurysmal aort a. Redemonstration of 2 hypodense lesions emanating from the left renal cortex which are exophytic. Both lesions are not adequately assessed. 5 lumbar type vertebrae. Lumbar spine vertebral body height is maintained. There is no fracture. Ther e is stable straightening of lumbar lordosis. Spondylolisthesis: L1-L2: 3.8 mm of anterolisthesis L5-S1: 6.6 mm of anterolisthesis. Interval removal of unilateral right-sided transpedicular screws at L4, L5 and S1. Stable laminectomy defect at L4-L5 and L5-S1. Stable multilevel vacuum disc phenomenon. Limited evaluation of the contents of the central spinal canal and neural foramina due to technique [id number] no significant central canal stenosis or significant neural foraminal narrowing L1-L2: Stable loss of disc space height. Broad-based disc bulge results in mild central canal stenosi s. Mild bilateral neural foraminal narrowing L2-L3: Vacuum disc phenomenon. Broad-based disc bulge, ligament flavum thickening and facet hypertrop hy result in mild central canal stenosis. Mild bilateral neural foraminal narrowing L3-L4: Vacuum disc phenomenon. Broad-based disc bulge, ligament flavum thickening and facet hypertrop hy result in mild to moderate central canal stenosis. Moderate bilateral neural foraminal narrowing L4-L5: Vacuum disc phenomenon. Posterior laminectomy defect. There appears to be scar tissue at the p ostoperative site. At least mild central canal stenosis. Moderate to severe right and moderate left neural foraminal narrowing L5-S1: Vacuum disc phenomenon. Posterior laminectomy defect. Postsurgical changes at the operative si te. No significant central canal stenosis. Moderate to severe right and moderate to severe left neural foraminal narrowing. IMPRESSION: 1. Interval removal of unilateral right-sided transpedicular screw at L4, L5 and S1 2. Stable multilevel degenerative changes of the lumbar spine. There are varying degrees of central c anal stenosis and foraminal narrowing as detailed above. 3. Stable anterolisthesis. Previously, there was 4 mm of retrolisthesis of L2 upon L3 and 6 mm brock listhesis of L5 upon S1 Transcribed Date/Time: 02/10/2020 1:07 PM
== END 2020-02-08 13:29 | disposition home or self-care (01) ==
LOC: SCSCT 13:28
PROVIDERS: ATTEND Neurological Surgery
DX: M43.16 Spondylolisthesis, lumbar region (principal); M47.816 Spondylosis without myelopathy or radiculopathy, lumbar region; M43.17 Spondylolisthesis, lumbosacral region; M48.061 Spinal stenosis, lumbar region without neurogenic claudication; M48.07 Spinal stenosis, lumbosacral region
CPT/HCPCS: 72110; 72131

== ENCOUNTER 2021-09-23 09:33 | Outpatient (CLI) | payer MEDICARE ==
[2021-09-23 10:54] LABS: Hemoglobin 14.4 g/dL (13.5-17.5); Mean Corpuscular HGB CONC 32.6 g/dL (32.0-36.0); Mean Corpuscular Hemoglobin 30.2 pg (27.0-33.0); Mean Corpuscular Volume 92.7 fl (81.2-95.1); Mean Platelet Volume 9.3 fl (7.4-10.4); Platelet Count 249 10x3/uL (150-450); RBC Distribution Width 13.2 % (11.5-14.5); Red Blood Cell (RBC) Count 4.77 10x6/uL (4.32-5.72); White Blood Cell (WBC) Count 5.2 10x3/uL (3.5-10.5)
[2021-09-23 11:01] LABS: Anion Gap 12 mmol/L (10-20); BUN (Urea Nitrogen) 14 mg/dL (8.4-25.7); Calc. Creatinine Clearance 0 mL/min (70-130); Calcium 8.7 mg/dL (7.8-10.44); Carbon Dioxide 27 mmol/L (23-31); Chloride 105 mmol/L (98-107); Glucose 103 mg/dL (83-110); Potassium 4.1 mmol/L (3.5-5.1); Sodium 140 mmol/L (136-145)
[2021-09-24 11:50] LABS: SARS-CoV-2 PCR by NAA Not Detected (NotDetected)
== END 2021-09-23 09:34 | disposition home or self-care (01) ==
LOC: LABBT 09:33
PROVIDERS: ATTEND Specialist
DX: Z01.818 Encounter for other preprocedural examination (principal); Z20.822 Contact with and (suspected) exposure to COVID-19
CPT/HCPCS: 80048; 85027; 93005; U0003; U0005; 93010

== ENCOUNTER 2021-09-26 09:19 | Day surgery (SDC) | payer MEDICARE ==
[2021-09-23 14:01] VITALS: BMI 31.0
[2021-09-26] MEDS ORDERED: ceFAZolin 2 GM/Dextrose 50 ML IVPB ONE (11:34)
[2021-09-26] MEDS ORDERED: Propofol 1,000 MG/100 ML VIAL IV ONE (11:35)
[2021-09-26] MEDS ORDERED: Propofol 500 MG/50 ML VIAL ONE (11:35)
[2021-09-26] MEDS ORDERED: CEFAZOLIN 1 GM VIAL ONE (11:37)
[2021-09-26] MEDS ORDERED: Sodium Chloride 0.9% 100 ML ONE (11:38)
[2021-09-26] MEDS ORDERED: EPINEPHrine 1 MG/ML AMP ONE (11:48)
[2021-09-26] MEDS ORDERED: Bupivacaine PF 0.5% 30 ML VIAL ONE (11:48)
[2021-09-26] MEDS ORDERED: Sodium Chloride 0.9% 10 ML ONE (11:48)
[2021-09-26] MEDS ORDERED: Fentanyl 100 MCG/2 ML VIAL ONE (11:53)
[2021-09-26] MEDS ORDERED: Ondansetron PF 4 MG/2 ML Vial ONE (12:08)
== END 2021-09-26 15:20 | disposition home or self-care (01) ==
LOC: SDC 09:19
PROVIDERS: ATTEND Specialist
PROC: 0JH Subcutaneous Tissue and Fascia, Insertion (ICD-10-PCS; principal; 2021-09-26)
PROC: 00HU3MZ Insertion of Neurostimulator Lead into Spinal Canal, Percutaneous Approach (ICD-10-PCS; 2021-09-26)
DX: G89.4 Chronic pain syndrome (principal); M96.1 Postlaminectomy syndrome, not elsewhere classified; M54.16 Radiculopathy, lumbar region; I10 Essential (primary) hypertension; E78.00 Pure hypercholesterolemia, unspecified; Z79.82 Long term (current) use of aspirin; Z79.899 Other long term (current) drug therapy; Z98.1 Arthrodesis status
CPT/HCPCS: 72020; 76000; C1713; C1778; C1787; C1820; J0171; J0690; J2405; J2704; J3010; J3490; L8689; S0020

== ENCOUNTER 2022-01-31 09:20 | Outpatient (CLI) | payer MEDICARE | END 2022-01-31 09:21 | disposition home or self-care (01) | LOC: SCSRAD 09:20 | PROVIDERS: ATTEND Family Medicine | DX: M96.1 Postlaminectomy syndrome, not elsewhere classified (principal); T85.192D Other mechanical complication of implanted electronic neurostimulator of spinal cord electrode (lead), subsequent encounter | CPT/HCPCS: 72070 ==

== ENCOUNTER 2022-02-10 09:41 | Outpatient (CLI) | payer MEDICARE ==
[~2022-02-10 09:41] MED LIST changes: -Dexamethasone 20 MG/5 ML VIAL ONE; -Glycopyrrolate 0.2 MG/ML 5 ML SYRINGE ONE; -Ketorolac Tromethamine 30 MG/ML VIAL ONE; -Lidocaine 1% PF 5 ML VIAL ONE; +Magnevist 469MG/ML 20 ML VIAL ONE; -Metoclopramide HCl 10 MG/2 ML VIAL ONE; -Ondansetron PF 4 MG/2 ML Vial ONE; -PHENYLEPHRINE-NS 100 MCG/ML 10 ML SYRINGE ONE; -PROPOFOL 200 MG/20 ML VIAL ONE; -Rocuronium Bromide 10 MG/ML (10ML VIAL) ONE
== END 2022-02-10 09:42 | disposition home or self-care (01) ==
LOC: BICMRI 09:41
PROVIDERS: ATTEND Family Medicine
DX: M96.1 Postlaminectomy syndrome, not elsewhere classified (principal); T85.192D Other mechanical complication of implanted electronic neurostimulator of spinal cord electrode (lead), subsequent encounter; M51.34 Other intervertebral disc degeneration, thoracic region; M51.36 Other intervertebral disc degeneration, lumbar region
CPT/HCPCS: 70210; 72158; A9579

== ENCOUNTER 2022-12-29 12:52 | Outpatient (CLI) | payer MEDICARE | END 2022-12-29 12:53 | disposition home or self-care (01) | LOC: SCSRAD 12:52 | PROVIDERS: ATTEND Neurological Surgery | DX: M47.816 Spondylosis without myelopathy or radiculopathy, lumbar region (principal); Z98.890 Other specified postprocedural states | CPT/HCPCS: 72100 ==

== ENCOUNTER 2023-11-03 12:00 | Outpatient (CLI) | payer MEDICARE | END 2023-11-03 12:01 | disposition home or self-care (01) | LOC: SCSMRI 12:00 | PROVIDERS: ATTEND Neurological Surgery | DX: M54.6 Pain in thoracic spine (principal); M40.204 Unspecified kyphosis, thoracic region; M48.04 Spinal stenosis, thoracic region; M51.9 Unspecified thoracic, thoracolumbar and lumbosacral intervertebral disc disorder | CPT/HCPCS: 72146 ==

== ENCOUNTER 2025-07-04 07:13 | Outpatient (CLI) | payer MEDICARE | END 2025-07-04 07:14 | disposition home or self-care (01) | LOC: SCSRAD 07:13 | PROVIDERS: ATTEND Internal Medicine | DX: R06.00 Dyspnea, unspecified (principal) | CPT/HCPCS: 71046 ==